=== PATIENT | female | born 1950 | race African-American/Black ===

== ENCOUNTER 2019-03-09 00:04 | Emergency (ER) | payer OTHER ==
[~2019-03-09] VITALS: Ht 154.9 cm; Wt 56.1 kg
[2019-03-09 00:21] VITALS: Ht 154.9 cm; Wt 56.1 kg
[2019-03-09] MEDS ORDERED: HYDR-4011 PO (04:42)
[2019-03-09] MEDS ORDERED: AMOX1TAB10 PO (04:42)
[2019-03-09] MEDS ORDERED: IBUP-1542 PO (04:42)
--- NOTE | 2019-03-09 04:44 | ERD ---
ER Documentation Chief Complaint Chief Complaint right upper toothache on and off x 1 week HPI This is a 68-year-old female who presents emergency room with her family with complaint of right upper tooth pain increasing in severity x1 week. Patient is from [place] and is here visiting her daughter. Patient states she has been taking Tylenol and it is not helping, difficult to eat due to pain. Denies fevers, denies dysphagia. ROS All systems reviewed and are negative except as per history of present illness. Medications Home Meds Active Scripts Hydrocodone/Acetaminophen (Conejos 5-325 Tablet) 1 Each Tablet, 1 TAB PO BID PRN for PAIN for 3 Days, #6 TAB Prov:LIBIA SONI NP 03/09/19 Ibuprofen* (Motrin*) 600 Mg Tab, 600 MG PO Q6 for 10 Days, #30 TAB Prov:LIBIA SONI NP 03/09/19 Amoxicillin/Potassium Clav (Amox-Clav 875-125 mg Tablet) 875-125 mg Tab, 1 TAB PO BID for tooth infection for 7 Days, #14 TAB Prov:LIBIA SONI NP 03/09/19 Allergies Allergies: Coded Allergies: No Known Allergies (Verified Allergy, Unknown, 03/09/19) PMhx/Soc Medical and Surgical Hx: pt denies Surgical Hx Hx Miscellaneous Medical Probl: Yes (COLON CA) Hx Alcohol Use: No Hx Substance Use: No Hx Tobacco Use: No Smoking Status: Never smoker FmHx Family History: No diabetes, No coronary disease, No other Physical Exam Vitals Vital Signs Date Temp Pulse Resp B/P (MAP) Pulse Ox O2 O2 Flow FiO2 Time Delivery Rate 03/09/19 97.8 68 18 148/73 98 Room Air 04:56 (98) 03/09/19 97.2 77 18 156/83 99 00:21 (107) Physical Exam Const: No acute distress Head: Atraumatic Eyes: Normal Conjunctiva, PERRL ENT: Normal External Ears, TM clear BL, pharynx pink, moist, no lesions or exudate. Multiple broken and missing teeth, upper right #3 broken, decayed, +swelling and erythema to surrounding gum. No cervical spinal tenderness. Neck: Full range of motion. No meningismus. No lymphadenopathy Resp: Clear to auscultation bilaterally Cardio: Regular rate and rhythm, no murmurs Abd: Soft, non tender, non distended. Normal bowel sounds Skin: No petechiae or rashes Back: No midline or flank tenderness Ext: No cyanosis, or edema Neur: Awake and alert, CN II-XII intact, clear speech, steady gait Psych: Normal Mood and Affect Results 24 hrs Current Medications Medications Dose Sig/Stevo Start Time Status Last (Trade) Ordered Route PRN Stop Time Admin Dose Reason Admin 1 tab ONCE ONCE 03/09/19 DC 03/09/19 Acetaminophen PO 05:00 04:53 / 03/09/19 05:01 Hydrocodone Bitart (Conejos (5/325)) 875 mg ONCE ONCE 03/09/19 DC 03/09/19 Amoxicillin/ PO 05:00 04:53 Clavulanate 03/09/19 05:01 Potassium (Augmentin) Procedures/MDM PROCEDURES/MDM -Medications: Conejos, Augmentin Patient tolerated medication well with no adverse reactions. Patient reported improvement in pain. MDM: This is a 68-year-old female patient who presents emergency room with complaint of pain to right upper jaw due to tooth infection. Right upper third tooth visibly red, swollen with decayed tooth. Patient's daughter states she has access to dentist and will take her to dentist tomorrow or as soon as possible. Patient has been instructed to complete entire course of antibiotic and has been given short course of narcotic pain medication due to patient's visible pain during examination. Patient and daughter has been instructed on signs and symptoms of worsening of infection and when to seek emergent medical treatment. I have a low suspicion for meningitis, fulminant infection or nectrotizing disease as the patient is not toxic appearing, no nuchal rigidity, and no altered mental status. Exam and w/u not consistent w/ deep space infection of the face, throat, or mastoids. No evidence of impending airway compromise. DISPOSITION and PLAN: RX: Conejos, ibuprofen, Augmentin The patient has been discharge home to follow-up with community physician. Departure Diagnosis: Primary Impression: Tooth disease Condition: Stable Patient Instructions: Dental Pain Referrals: [facility] ([facility] walk in clinic) COMMUNITY CLINICS YOU HAVE RECEIVED A MEDICAL SCREENING EXAM AND THE RESULTS INDICATE THAT YOU DO NOT HAVE A CONDITION THAT REQUIRES URGENT TREATMENT IN THE EMERGENCY DEPARTMENT. FURTHER EVALUATION AND TREATMENT OF YOUR CONDITION CAN WAIT UNTIL YOU ARE SEEN IN YOUR DOCTORS OFFICE WITHIN THE NEXT 1-2 DAYS. IT IS YOUR RESPONSIBILITY TO MAKE AN APPOINTMENT FOR FOLOW-UP CARE. IF YOU HAVE A PRIMARY DOCTOR --you should call your primary doctor and schedule an appointment IF YOU DO NOT HAVE A PRIMARY DOCTOR YOU CAN CALL OUR PHYSICIAN REFERRAL HOTLINE AT IF YOU CAN NOT AFFORD TO SEE A PHYSICIAN YOU CAN CHOSE FROM THE FOLLOWING [facility] [address] [facility] [address] [facility] [address] [facility] [address] [facility]. [facility] [address] [facility]. [facility] [address] Additional Instructions: Thank you very much for allowing us to participate in your care. Your health and safety is our top priority at [facility]. Call your primary care doctor TOMORROW for an appointment during the next 2-4 days and bring all the information and medications prescribed. Have prescriptions filled and follow precisely the directions on the label. If the symptoms get worse and your provider is unavailable, return to the Emergency Department immediately. TAKE ENTIRE COURSE OF ANTIBIOTICS INCREASE HYDRATION TO 1 TO 2 L/DAY WHILE TAKING ANTIBIOTICS USE IBUPROFEN NEEDED FOR PAIN USE NORCO NEEDED FOR SEVERE PAIN FOLLOW-UP WITH DENTIST ON MONDAY RETURN TO THE EMERGENCY ROOM IMMEDIATELY FOR FEVER, WORSENING OF PAIN, CHANGING OF SYMPTOMS LIBIA SONI NP Mar 09, 2019 04:44
[2019-03-09 04:56] VITALS: BP 148/73; PULSE 68; RESP 18
[2019-03-09] MEDS ORDERED: AMOXICILLIN/CLAV 875 MG TAB PO ONE (05:00)
[2019-03-09] MEDS ORDERED: HYDROCODONE/APAP (5/325) TAB PO ONE (05:00)
== END 2019-03-09 05:29 | disposition home or self-care (01) ==
LOC: FTE 00:04
DX: K08.9 Disorder of teeth and supporting structures, unspecified (principal); Z85.038 Personal history of other malignant neoplasm of large intestine
CPT/HCPCS: 99283